=== PATIENT | female | born 1955 | race Caucasian/White ===

== ENCOUNTER → 2016-10-08 | Outpatient (CLI) | payer OTHER ==
--- NOTE | ~2016-10-08 | CR126 ---
[facility] A Service of [facility] & [facility] / [facility] RADIOLOGY TEXT RESULTS PATIENT: COLTON VAZQUEZ LOCATION: [facility] : 57 UNIT #: [id number] AGE: [address]: MONA HIGUERA APRN SEX: F ORDER DR: [id number] [facility] [address] [place], [place] [address] [id number] O MR#: [id number] Acc #: [id number] NAME: COLTON VAZQUEZ : 1955 SEX: F STUDY DATE/TIME: 10/08/2016 15:58 UNIT: [facility] ROOM: STUDY DESCRIPTION: CR Foot Complete Min 3 View Lt Attending Physician: Mona Higuera Np Referring Physician: Mona Higuera Np Ordering Physician: Mona Higuera Np Primary Care Physician: Chey Bowser M.D. MEDICAL IMAGING REPORT This report is preliminary unless electronic signature is present EXAM 3 view left foot. DATE OF EXAM 10/08/2016 INDICATIONS Left foot pain. Anterior and lateral foot pain for 1 month. FINDINGS 3 views of the left foot without comparison. There is no acute fracture or dislocation. Alignment is anatomic. Joint spaces are normal. No foreign body. IMPRESSION Negative left foot radiograph. Dictated by... Jose Lares M.D. THIS IS AN ELECTRONICALLY VERIFIED REPORT Jose Lares M.D. at 10/10/2016 10:22 AM CAMRYN/adelia TD: 10/09/2016 21:01 JOB #: [id number] MEDICAL IMAGING REPORT Page 1 of 1 COPY
== END | disposition home or self-care (01) ==
LOC: CRAD 15:47
DX: M79.672 Pain in left foot (principal)
CPT/HCPCS: 73630

== ENCOUNTER → 2017-03-17 | Outpatient (CLI) | payer OTHER ==
[2017-03-17 10:59] LABS: HEMOGLOBIN 14.2 gm/dL (12.0-16.0); MEAN CELL VOLUME 89.2 FL (83-96); MEAN CORPUSCULAR HEMOGLOBIN 29.5 PG (28-34); MEAN CORPUSCULAR HGB CONC 33.1 g/dL (30-36); MEAN PLATELET VOLUME 9.9 FL (6.5-11.5); RED BLOOD COUNT 4.82 X10e (3.90-5.30); RED CELL DISTRIBUTION WIDTH 12.9 % (11.0-15.5); WHITE BLOOD COUNT 8.7 X10e3 (4.0-10.5)
[2017-03-17 11:24] LABS: BUN/CREATININE RATIO 16.25; CALCIUM SERUM 9.3 mg/dL (8.4-10.2); CREATININE SERUM 0.8 mg/dL (0.6-1.4); GLOM FILT RATE Estimated 80.2 mL/min (>60); POTASSIUM 4.3 mmol/L (3.5-5.1)
== END | disposition home or self-care (01) ==
LOC: CLAB 10:13
PROVIDERS: Podiatrist Foot & Ankle Surgery
DX: Z01.812 Encounter for preprocedural laboratory examination (principal)
CPT/HCPCS: 36415; 80048; 84703; 85027